=== PATIENT | female | born 1995 | race Caucasian/White ===

== ENCOUNTER 2018-08-07 00:16 | Emergency (ER) | payer SELFPAY ==
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
[2018-08-07 01:38] LABS: CHLORIDE,CL 105 mmol/L (98-107); SODIUM,NA 143 mmol/L (136-145)
== END 2018-08-07 02:05 | disposition home or self-care (01) ==
LOC: LL.ED 00:16
DX: G40.909 Epilepsy, unspecified, not intractable, without status epilepticus (principal); Z88.0 Allergy status to penicillin; Z79.899 Other long term (current) drug therapy
CPT/HCPCS: 36415; 80053; 80175; 80305-QW; 82550; 85025; 99285